=== PATIENT | male | born 1995 | race Caucasian/White ===

== ENCOUNTER 2018-09-12 15:46 | Emergency (ER) | payer BC ==
[2018-09-12] MEDS ORDERED: FAMOTIDINE 20 MG TAB PO STA (17:16)
--- NOTE | 2018-09-12 17:57 | XR ---
EXAMINATION TYPE: XR chest 2V DATE OF EXAM: 09/12/2018 COMPARISON: 02/14/2009 HISTORY: Chest pain TECHNIQUE: Frontal and lateral views of the chest are obtained. FINDINGS: Heart and mediastinum are normal. Lungs are clear. Diaphragm is normal. Bony thorax appear s normal. IMPRESSION: Normal chest. No change.
[2018-09-12 18:26] VITALS: BP 113/79; PULSE 65; RESP 18; TEMP 97.1
--- NOTE | 2018-09-12 18:54 | ED ---
General Adult HPI - General Chief complaint: Chest Pain Stated complaint: Chest pressure Time Seen by Provider: 09/12/18 17:03 Source: patient, RN notes reviewed Mode of arrival: ambulatory Limitations: no limitations - History of Present Illness Initial comments: 23-year-old male presents to the emergency department for a chief complaint of chest pain times several months. Patient states he has an uncharacterized old type of pain in the center of his chest that only occurs after he wakes up in the morning. States he sometimes feels this pain in his throat. Does admit that this is burning in nature. Does confirm that it worsens with lying down and is better when he gets up for the morning. Denies any shortness of breath related with this. She states she notices it after he eats certain foods that it worsens. States he stopped drinking Mountain Dew because of this. He now drinks Coca-Cola. Patient states sometimes he gets nauseous depending on what he eats. Patient is concerned he could have an ulcer or cancer in his lungs from his generous amounts of smoking. Denies fevers or chills. Denies any pain with breathing.Patient has no other complaints at this time including shortness of breath, chest pain, abdominal pain, nausea or vomiting, headache, or visual changes. - Related Data Home Medications Medication Instructions Recorded Confirmed No Known Home Medications 09/12/18 09/12/18 Allergies Allergy/AdvReac Type Severity Reaction Status Date / Time No Known Allergies Allergy Verified 09/12/18 17:11 Review of Systems ROS Statement: Those systems with pertinent positive or pertinent negative responses have been documented in the HPI. ROS Other: All systems not noted in ROS Statement are negative. Past Medical History Past Medical History: Asthma History of Any Multi-Drug Resistant Organisms: None Reported Past Surgical History: No Surgical Hx Reported Past Psychological History: Anxiety, Depression Smoking Status: Current every day smoker Past Alcohol Use History: Occasional Past Drug Use History: None Reported General Exam Limitations: no limitations General appearance: alert, in no apparent distress Head exam: Present: atraumatic, normocephalic, normal inspection Eye exam: Present: normal appearance, PERRL, EOMI. Absent: scleral icterus, conjunctival injection, periorbital swelling ENT exam: Present: normal exam, mucous membranes moist Neck exam: Present: normal inspection, full ROM. Absent: tenderness, meningismus, lymphadenopathy Respiratory exam: Present: normal lung sounds bilaterally. Absent: respiratory distress, wheezes, rales, rhonchi, stridor Cardiovascular Exam: Present: regular rate, normal rhythm, normal heart sounds. Absent: systolic murmur, diastolic murmur, rubs, gallop, clicks GI/Abdominal exam: Present: soft, normal bowel sounds. Absent: distended, tenderness (No tenderness noted in the abdomen), guarding, rebound, rigid Neurological exam: Present: alert, oriented X3, CN II-XII intact Psychiatric exam: Present: normal affect, normal mood Course Vital Signs 09/12/18 09/12/18 15:49 18:23 Temperature 97.4 F L 97.1 F L Pulse Rate 71 65 Respiratory 20 18 Rate Blood Pressure 126/80 113/79 O2 Sat by Pulse 99 98 Oximetry EKG Findings - EKG Comments: EKG Findings:: Normal sinus rhythm, ventricular rate 66,. Pr int 148, QTC 392, early repolarization noted. Medical Decision Making - Medical Decision Making 23-year-old male presents to the emergency department for a chief complaint of chest pain 6 months. States that this is worse when he lies down and better when he sits up. States it is the worst when he wakes up in the morning. States that Stacy is nauseous if he eats certain foods. States he has switched from him due to Coca-Cola with improvement. Admits to smoking history. Exam is unremarkable. Patient is well-appearing denying any pain at this time. Vitals are stable. EKG shows a normal sinus rhythm. Patient was given Pepcid. Chest x-ray does not show any evidence of acute cardial Pollner process. Patient has an appointment with his primary care in 1 week. Discussed lab work versus trial of medication. Patient prefers with trying Pepcid for a week and seeing if this helps until he sees primary. However if this worsens he will return here. Disposition Clinical Impression: Atypical chest pain Disposition: HOME SELF-CARE Condition: Good Instructions (If sedation given, give patient instructions): Chest Pain (ED), Gastroesophageal Reflux Disease (ED) Additional Instructions: Please take Pepcid as directed. Follow up with primary care appointment. If you have any worsening symptoms return here to the emergency department. Is patient prescribed a controlled substance at d/c from ED?: No Referrals: Christiano Zamarripa MD [Primary Care Provider] - 1-2 days Time of Disposition: 18:55
== END 2018-09-12 19:31 | disposition home or self-care (01) ==
LOC: EC 15:46
DX: R07.89 Other chest pain (principal); R11.0 Nausea; F17.200 Nicotine dependence, unspecified, uncomplicated
CPT/HCPCS: 71046; 93005; 99285

== ENCOUNTER 2019-04-05 07:45 | Emergency (ER) | payer BC ==
[2019-04-05 07:52] VITALS: BP 138/70; PULSE 78; RESP 20; TEMP 98
--- NOTE | 2019-04-05 08:11 | ED ---
General Adult HPI - General Chief complaint: Nausea/Vomiting/Diarrhea Stated complaint: nausea Time Seen by Provider: 04/05/19 07:55 Source: patient, RN notes reviewed, old records reviewed Mode of arrival: ambulatory Limitations: no limitations - History of Present Illness Initial comments: 23-year-old male with no significant past medical history presenting for evaluation of nausea and indigestion. Patient has had symptoms for many months. He reports acid taste in his throat. Denies chest pain or dyspnea. Denies persistent fevers. States he has had some fluctuation in his weight and has recently gained weight. He eats a diet predominately fast food. 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 No significant abdominal pain. Patient does have a primary care physician but has not seen his physician regarding these symptoms. - Related Data Previous Rx's Medication Instructions Recorded Famotidine [Pepcid] 20 mg PO BID #30 tablet 09/12/18 Omeprazole [PriLOSEC] 20 mg PO AC-BID #30 cap 04/05/19 Allergies Allergy/AdvReac Type Severity Reaction Status Date / Time No Known Allergies Allergy Verified 04/05/19 07:52 Review of Systems ROS Statement: Those systems with pertinent positive or pertinent negative responses have been documented in the HPI. ROS Other: All systems not noted in ROS Statement are negative. Past Medical History Past Medical History: Asthma History of Any Multi-Drug Resistant Organisms: None Reported Past Surgical History: No Surgical Hx Reported Past Psychological History: Anxiety, Depression Smoking Status: Current every day smoker Past Alcohol Use History: Occasional Past Drug Use History: None Reported General Exam Limitations: no limitations General appearance: alert, in no apparent distress Head exam: Present: atraumatic, normocephalic Eye exam: Present: normal appearance, PERRL ENT exam: Present: normal exam Neck exam: Present: normal inspection. Absent: tenderness, meningismus Respiratory exam: Present: normal lung sounds bilaterally. Absent: respiratory distress, wheezes Cardiovascular Exam: Present: regular rate, normal rhythm, normal heart sounds GI/Abdominal exam: Present: soft. Absent: distended, tenderness, guarding, rebound, rigid Extremities exam: Present: normal inspection, normal capillary refill Neurological exam: Present: alert, oriented X3 Psychiatric exam: Present: normal affect, normal mood Skin exam: Present: warm, dry, intact Course Vital Signs 04/05/19 07:49 Temperature 98 F Pulse Rate 78 Respiratory 20 Rate Blood Pressure 138/70 O2 Sat by Pulse 97 Oximetry Medical Decision Making - Medical Decision Making 23-year-old male with poor diet for sleep cycle presenting with indigestion and symptoms consistent with gastric reflux. Patient will be tried on omeprazole. He is encouraged to improve his diet. His activity level and sleep cycle. He will make an appointment with his primary care physician regarding these symptoms. Given the chronicity of his symptoms and no active vomiting, dehydration, or abdominal pain outpatient follow-up is appropriate at this time. Disposition Clinical Impression: Gastric reflux, GERD (gastroesophageal reflux disease) Disposition: HOME SELF-CARE Condition: Good Instructions (If sedation given, give patient instructions): Acute Nausea and Vomiting (ED), Gastritis (ED) Prescriptions: Omeprazole [PriLOSEC] 20 mg PO AC-BID #30 cap Is patient prescribed a controlled substance at d/c from ED?: No Referrals: Christiano Zamarripa MD [Primary Care Provider] - 1-2 days Time of Disposition: 08:10
== END 2019-04-05 08:20 | disposition home or self-care (01) ==
LOC: EC 07:45
DX: K21.9 Gastro-esophageal reflux disease without esophagitis (principal); R63.5 Abnormal weight gain; F17.200 Nicotine dependence, unspecified, uncomplicated
CPT/HCPCS: 99283